=== PATIENT | female | born 1955 | race Caucasian/White ===

== ENCOUNTER → 2023-04-13 08:45 | Outpatient (REF) | payer BC, SELFPAY | LOC: MRI 3T 08:45 | PROVIDERS: ATTENDING PHYSICIAN Otolaryngology Facial Plastic Surgery; FAMILY PHYSICIAN Nurse Practitioner Adult Health | DX: H90.A22 Sensorineural hearing loss, unilateral, left ear, with restricted hearing on the contralateral side (principal) | CPT/HCPCS: 70553; A9575 ==